=== PATIENT | female | born 1970 | race African-American/Black ===

== ENCOUNTER 2018-02-08 16:15 | Emergency (ER) | payer MEDICAID, MEDICARE ==
[~2018-02-08] VITALS: Ht 175.3 cm; Wt 127.0 kg
[~2018-02-08 16:15] MED LIST: DILAUDID; NORCO
[2018-02-08] MEDS ORDERED: LOSA50TA20 PO (16:24)
[2018-02-08] MEDS ORDERED: OXYCODONE HCL/ACETAMINOPHEN 5/325MG TABLET PO ONE (17:00)
[2018-02-08] MEDS ORDERED: KETOROLAC 30MG/ML VIAL IV ONE (17:00)
[2018-02-08] MEDS ORDERED: MORPHINE SULFATE 4 MG/ML CPJ (NOT FOR IM USE) IV ONE (18:45)
[2018-02-08 20:15] VITALS: BP 151/82
== END 2018-02-08 20:20 | disposition home or self-care (01) ==
LOC: ER 16:15
DX: M79.1 Myalgia (principal); M54.12 Radiculopathy, cervical region; I10 Essential (primary) hypertension; F17.200 Nicotine dependence, unspecified, uncomplicated
CPT/HCPCS: 72125; 82962; 93005; 96374; 96375; 99284; J1885; J2270

== ENCOUNTER 2018-03-16 13:32 | Emergency (ER) | payer MEDICARE, MEDICAID ==
[~2018-03-16] VITALS: Ht 170.2 cm; Wt 110.0 kg
[~2018-03-16 13:32] MED LIST changes: +LOSA50TA20 PO
[2018-03-16 13:36] VITALS: BP 145/87
== END 2018-03-16 19:43 | disposition left against medical advice (07) ==
LOC: ER 13:32
DX: R10.9 Unspecified abdominal pain (principal); Z53.21 Procedure and treatment not carried out due to patient leaving prior to being seen by health care provider